=== PATIENT | female | born 1950 | race Caucasian/White ===

== ENCOUNTER 2025-03-18 10:46 | Outpatient (CLI) | payer MEDICAID, SELFPAY | END 2025-03-18 10:47 | disposition home or self-care (01) | LOC: NFLDREF 03-21 14:41 | PROVIDERS: Visit Provider Nurse Practitioner Family | DX: N39.0 Urinary tract infection, site not specified (principal); R35.89 Other polyuria | CPT/HCPCS: 87086 ==